=== PATIENT | female | born 1995 | race American Indian/Alaskan Native ===

== ENCOUNTER 2018-09-17 06:14 | Inpatient (IN) | payer MEDICAID ==
[2018-09-17 06:24] VITALS: BMI 35.2
[2018-09-17] MEDS ORDERED: Oxytocin 30 UNIT in NS 500 ml 30 UNITS/500 ML BAG IV ONE ×3 (06:52→12:30)
[2018-09-17] MEDS: Lactated Ringer's 1,000 ML IV ONE ×2 (06:59→07:40)
[2018-09-17] MEDS ORDERED: ceFAZolin 2 GM in Sodium Chloride 0.9% 100 ML IVPB ONE (07:00)
[2018-09-17] MEDS ORDERED: OXYTOCIN/0.9 % NS 20 UNIT/1,000 ML BAG IV SCH (07:00)
[2018-09-17 07:06] LABS: BASO # 0.1 K/uL (0.0-0.2); EOS # 0.1 K/uL (0.0-0.7); HEMOGLOBIN 12.2 g/dL (12.0-16.0); LYMPH # 1.5 K/uL (1.0-4.3); LYMPH % 25.8 % (20.0-40.0); MEAN CELL VOLUME 93.5 fl (81.0-99.0); MEAN CORPUSCULAR HEMOGLOBIN 31.9 pg (27.0-31.0); MEAN CORPUSCULAR HGB CONC 34.1 g/dL (33.0-37.0); MEAN PLATELET VOLUME 9.3 fl (7.2-11.7); MONO # 0.4 K/uL (0.0-0.8); MONO % 7.3 % (0.0-10.0); NEUT # 3.8 K/uL (1.8-7.0); NEUT % 64.9 % (50.0-75.0); RBC 3.81 Mil/uL (3.80-5.20); RED CELL DISTRIBUTION WIDTH 12.7 % (11.5-14.5); WHITE BLOOD COUNT 5.8 K/uL (4.8-10.8)
[2018-09-17] MEDS ORDERED: Bupivacaine 0.25% 300 ML in Sodium Chloride 0.9% 300 ML IS ONE (07:50)
[2018-09-17] MEDS ORDERED: Lactated Ringer's 1,000 ML IV SCH (08:45)
[2018-09-17] MEDS ORDERED: Morphine 5 mg/10 ml preservative-free Inj(Duramorph) ONE (09:11)
[2018-09-17] MEDS ORDERED: Oxycodone/Acetaminophen 5/325 mg Tab PO PRN ×3 (10:52→14:35)
--- NOTE | 2018-09-17 10:52 | OBDS ---
DELIVERY PERSONNEL Delivery Doctor: Nya Mcbride. MD Admissions Representative: MBorreoRN and MLongoriaRN Anesthesiologist: Dr Rey Resident: Dr Dianne Dasilva(OB Fellow) MATERNAL INFORMATION Delivery Anesthesia: Spinal Medications in Delivery: Pitocin Maternal Complications: None Provider Comments: See operative report LABOR SUMMARY EDC: 09/25/2018 00:00 No. Babies in Womb: 1 LABOR INFORMATION Group B Beta Strep: Negative STAGES OF LABOR Stage 3 hrs: 0 Stage 3 min: 1 CSECTION DELIVERY Primary Indication: Repeat Elective CSection Urgency: Elective CSection Incidence: Repeat Labor: No Labor Elective: Elective CSection Incision: Lower Uterine Transverse BABY A INFORMATION Delivery Date/Time: 09/17/2018 09:59 Method of Delivery: Born in Route : No : N/A Forceps: N/A Vacuum Extraction: N/A Shoulder Dystocia : No SHOULDER DYSTOCIA BABY A Delivery Date/Time: 09/17/2018 09:59 PRESENTATION/POSITION BABY A Presentation: Cephalic Cephalic Presentation: Vertex Breech Presentation: N/A PLACENTA INFORMATION BABY A Placenta Delivery Time : 09/17/2018 10:00 Placenta Method of Delivery: Manual Removal Placenta Status: Delivered INFORMATION BABY A Gestational Age at Delivery: 38.6 Infant Outcome : Liveborn Sex: Female CORD INFORMATION BABY A No. Cord Vessels: 3 Nuchal Cord : N/A Nuchal Cord Other: n/a True Knot: n/a Cord pH Baby Arterial: n/a Cord Blood Taken: Yes Banking/Donate Info: n/a Suction: None
[2018-09-17] MEDS ORDERED: DiphenhydrAMINE 50 mg/ml Inj IVP PRN ×2 (14:05→14:35)
[2018-09-17] MEDS: Lactated Ringer's 1,000 ML IV SCH (19:30)
[2018-09-18] MEDS: Lactated Ringer's 1,000 ML IV SCH (03:30)
[2018-09-18 07:57] LABS: HEMOGLOBIN 11.1 g/dL (12.0-16.0); MEAN CELL VOLUME 93.9 fl (81.0-99.0); MEAN CORPUSCULAR HEMOGLOBIN 32.3 pg (27.0-31.0); MEAN CORPUSCULAR HGB CONC 34.3 g/dL (33.0-37.0); RBC 3.44 Mil/uL (3.80-5.20); RED CELL DISTRIBUTION WIDTH 12.7 % (11.5-14.5); WHITE BLOOD COUNT 6.6 K/uL (4.8-10.8)
[2018-09-18] MEDS ORDERED: Multivitamin With Minerals Tab PO SCH (09:00)
[2018-09-18] MEDS: Multivitamin With Minerals Tab PO SCH (09:37)
[2018-09-18] MEDS: Oxycodone/Acetaminophen 5/325 mg Tab PO PRN ×2 (09:37→15:29)
[2018-09-19] MEDS: Oxycodone/Acetaminophen 5/325 mg Tab PO PRN (05:11)
--- NOTE | 2018-09-19 07:27 | OBPPN ---
Datetime: 09/19/2018 07:20 PP Pain Prov: Within normal limits PP Nausea Prov: Denies PP Flatus Prov: Yes PP Breasts Prov: Normal PP Heart Prov: Normal PP Lungs Prov: Normal PP Abdomen/Uterus Prov: Normal PP Lochia Prov: Normal PP Vulva/Perineum Prov: Normal PP CVA Tenderness Prov: Normal PP Extremities Prov: Normal PP C/S Incision Prov: Normal PP Progress Prov: Normal PP Comments Phys Exam Prov: Abd: Soft, NT, BS- present UT- Firm, Below umbilicus Incision: Clean and dry PP Impression Prov: Normal progression PP Plan Prov: Continue present management PP Progress Note Prov: S/P Delivery, POD#2 Clinically Stable. Plan: Continue care. Encourage ambulation. Vital Signs Provider PP: Reviewed
[2018-09-19] MEDS: Lactated Ringer's 1,000 ML IV SCH (07:43)
[2018-09-19] MEDS: Multivitamin With Minerals Tab PO SCH (08:12)
[2018-09-20] MEDS: Oxycodone/Acetaminophen 5/325 mg Tab PO PRN (03:45)
[2018-09-20] MEDS: Multivitamin With Minerals Tab PO SCH (08:34)
--- NOTE | 2018-09-20 08:44 | OP ---
PROCEDURE DATE: 09/17/18 PREOPERATIVE DIAGNOSES: History of previous delivery, intrauterine at 39 weeks, declined trial of labor. POSTOPERATIVE DIAGNOSES: History of previous delivery, intrauterine at 39 weeks, declined trial of labor. OPERATION PERFORMED: Repeat low flap transverse section via Pfannenstiel skin incision. SURGEON: Silvia Mcbride MD PROCESS EQUIPMENT OPERATOR: Dr. Lalita Dasilva ESTIMATED BLOOD LOSS: 800 mL. URINE OUTPUT: Bernal catheter put out approximately 150 mL of clear urine. INTRAVENOUS FLUID INTAKE: The patient received 1900 mL of D5 LR intraoperatively. OPERATIVE FINDINGS: Baby girl, vertex presentation, Apgars 9 and 9, weighing 2500 g. Normal uterus, tubes, and ovaries were identified. DESCRIPTION OF PROCEDURE: After informed consent was obtained, the patient was taken to the operating room where she was given spinal anesthesia. She was then prepped and draped in a normal sterile fashion with a leftward tilt. A Pfannenstiel skin incision was then made with a scalpel and carried down to the underlying layer of fascia. The fascia was nicked in the midline. The fascial incision was then extended laterally with curved Torres scissors. The superior aspect of the fascial incision was then grasped with Saira clamps, elevated up, and the rectus muscles were dissected off using both sharp and blunt dissection. Attention was then turned to the inferior aspect of the fascial incision, which in a similar fashion, was grasped with Saira clamps, elevated up, and the rectus muscles were dissected off using both sharp and blunt dissection. The rectus muscles were then in the midline. The peritoneum was identified and entered sharply with the Metzenbaum scissors. The peritoneal incision was then extended superiorly and inferiorly with good visualization of the bladder. A bladder blade was inserted. The vesicouterine peritoneum was identified and entered sharply with the Metzenbaum scissors. The incision was then extended laterally. The bladder flap was created digitally. The bladder blade was then re-adjusted. A low transverse incision was made with the scalpel. The infant's head was then delivered atraumatically. The nose and mouth were suctioned with DeLee suction trap. The cord was clamped and cut. The infant was handed off to the awaiting pediatricians. The placenta was then removed manually. The uterus was exteriorized and cleared of all clots and debris. The uterine incision was repaired with 0 Vicryl in a running locked fashion. The second layer of the same suture was used to obtain excellent hemostasis. The abdomen was then copiously irrigated. The irrigant was removed with a suction device. The uterus was noted to be hemostatic. The gutters were then cleared of all clots and debris. An On-Q catheter was then threaded through and placed along superiorly to the uterine incision. The peritoneum was then closed. An additional On-Q catheter was then threaded through and placed above the fascia and below the fascia. The muscle was reapproximated with 0 Vicryl in an interrupted fashion. The fascia was closed with 0 Vicryl in a running fashion. The skin was closed with 3-0 on a Aly needle. All sponge, lap, needle, and instrument counts were correct x2. The patient was taken to the recovery room in awake and stable condition. Silvia Mcbride MD
--- NOTE | 2018-09-20 11:46 | OBPPN ---
Datetime: 09/20/2018 09:04 PP Pain Prov: Within normal limits PP Nausea Prov: Denies PP Flatus Prov: Yes PP BM Prov: No PP Breasts Prov: Not Done PP Heart Prov: Normal PP Lungs Prov: Normal PP Abdomen/Uterus Prov: Normal PP Lochia Prov: Normal PP Vulva/Perineum Prov: Not Done PP CVA Tenderness Prov: Normal PP Extremities Prov: Normal PP Comments Phys Exam Prov: see note PP Impression Prov: Normal progression PP Plan Prov: Discharge PP Progress Note Prov: S: 23 yo Female S/P C-sec day 3 was seen and examined today morning. P atient currently have no complains, except for abd at suture line, and unable to pass BM. Otherwise P atient able to ambulate to bathroom with no dizziness. She is tolerating regular diet without N/V. Lo lawson is less than menses in volume. Patient denies [place], blurry vision, CP, palpitations, SOB, chills d ysuria or other complaint at this time. appropriately. O: VS WNL GEN: NAD HEENT: NAD RESP: CTA b/l CV: RRR, S1 S2 normal, no murmurs ABD: Soft, uterus firm at umbilical level, incision dressing removed, wound well approxi mated, intact and clean. EXT: LE no edema, Edilia's neg A/P 23 yo Female S/P C-sec day 3, with normal POD progression. Patient Hb 11.1/32.4, patient is hemodynamically stable and asymptomatic Plan -OOB and Ambulation encouraged -Regular diet - encouraged -PNV 1 tab QD -Colace 100 PO state -Pain management -Discharge today home with medication. Jaspreet PGY 1 Case discussed with Attending Addendum by Dr. Gates: I have evaluated the patient independently and I agree with the above Vital Signs Provider PP: Reviewed; Within Normal Limits
--- NOTE | 2018-09-20 11:46 | OBDCSUM ---
Datetime: 09/20/2018 09:07 Discharged to, Provider: Home Follow up at, Provider: [facility] Disch Instr Activity: Normal activity; Bedrest Disch Instr Diet: Regular Discharge Instructions, Provider: Routine instructions given Discharge Diagnosis, Provider: Term Delivered Discharge Time: 09/20/2018 13:00 Follow up in weeks, Provider: 1week Disch Referrals: None Disch Activity Restrictions: No exercising; No lifting; Minimize stair-climbing; No sexual activity; Nothing in vagina - [place], tampons, douche Discharge Comment, Provider: EGA: 38.6 Diagnosis: scheduled C-SEC (repeat) risk factors: none [place]: 09/17/18@9:59 Post- Summary: No complications during post- period. Lochia less than menses. Pt able to pass gas, but still no BM, ambulate and pass urine. Tolerate regular diet, Fundus firm below umbil icus level. CBC post-: 11.1/32.4 Discharge Instructions: PNV 1 tab PO daily Ibuprofen 600mg 1 tab prn for mild-mod pain Percocet 5-325 mg Po given for severe pain Use Colace prn constipation ER precautions: If excessive bleeding or fever without relief from medication, go to ED PT was urged if feeling sad, mood swing, depression, neglect of baby, suicidal thoughts, homicidal thought should go to ER or call 911 for help F/U with OBGYN in 1 week for wound care F/U 4-6 week for PP [address] Vogel PGY1 Case discussed with attending Contraception after Delivery: Undecided
[2018-09-20 18:01] VITALS: BP 128/72; PULSE 81; RESP 20; TEMP 98.3; O2SAT 97
== END 2018-09-20 12:57 | disposition home or self-care (01) | DRG 371 ==
LOC: H.EROB2 06:14 → H.L&D 06:25 → H.OB/GYN 13:44
PROVIDERS: ADMIT Obstetrics & Gynecology; ATTEND Obstetrics & Gynecology
PROC: 10D00Z1 Extraction of Products of Conception, Low, Open Approach (ICD-10-PCS; principal; 2018-09-17)
PROC: 4A1HXCZ Monitoring of Products of Conception, Cardiac Rate, External Approach (ICD-10-PCS; 2018-09-17)
DX: O34.211 Maternal care for low transverse scar from previous cesarean delivery (principal); Z37.0 Single live birth; Z3A.38 38 weeks gestation of pregnancy